=== PATIENT | female | born 1970 | race Two or more races ===

== ENCOUNTER 2016-08-28 16:37 | Emergency (ER) | payer BC ==
[2016-08-28 18:15] LABS: HCG,QUALITATIVE URINE NEGATIVE
[2016-08-28] MEDS ORDERED: KETOROLAC TROMETHAMINE 15 MG/ML VIAL ONE (19:06)
[2016-08-28] MEDS ORDERED: PROCHLORPERAZINE 5 MG/ML 2 ML VIAL ONE (19:06)
[2016-08-28] MEDS ORDERED: LACTATED RINGERS 1,000 ML ONE (19:06)
[2016-08-28] MEDS ORDERED: ACETAMINOPHEN 325 MG TABLET ONE (19:06)
[2016-08-28] MEDS ORDERED: DIPHENHYDRAMINE HCL 50 MG/1 ML VIAL ONE (19:17)
[2016-08-28] MEDS ORDERED: MAGNESIUM SULFATE 2 G/50 ML 50 ML IV ONE (19:30)
== END 2016-08-28 20:32 | disposition home or self-care (01) ==
LOC: ED 16:37
DX: G43.909 Migraine, unspecified, not intractable, without status migrainosus (principal)
CPT/HCPCS: 81025; 96375 ×3; 99283 ×2; 96365; J1200; J0780; J1885; A9270; J7120; J3475